=== PATIENT | male | born 1945 | race Caucasian/White ===

== ENCOUNTER 2020-11-14 14:05 | Emergency (ER) | payer MEDICARE, BC ==
[~2020-11-14] VITALS: Ht 175.3 cm; Wt 88.5 kg
[2020-11-14] MEDS ORDERED: ATORVASTATIN CA10 MG PO (17:13)
[2020-11-14] MEDS ORDERED: EUTHYROX112 MCG PO (17:14)
[2020-11-14] MEDS ORDERED: FLUTICASONE PRO16 GM NAS (17:14)
[2020-11-14] MEDS ORDERED: TAMSULOSIN HCL0.4 MG PO (17:14)
[2020-11-14] MEDS ORDERED: METHOCARBAMOL750 MG PO (17:15)
[2020-11-14] MEDS ORDERED: LIDODERM1 EACH TOP (19:13)
== END 2020-11-14 19:17 | disposition home or self-care (01) ==
LOC: ED 14:05
DX: M54.5 Low back pain (principal); Z87.891 Personal history of nicotine dependence; Z88.5 Allergy status to narcotic agent; Z79.899 Other long term (current) drug therapy
CPT/HCPCS: 99283; A9270